=== PATIENT | male | born 2000 | race African-American/Black ===

== ENCOUNTER 2023-06-22 14:19 | Emergency (ER) | payer OTHER ==
[~2023-06-22] VITALS: Ht 182.9 cm; Wt 88.3 kg
[2023-06-22 14:20] VITALS: BP 147/80; TEMP 98.6; O2SAT 99
== END 2023-06-22 15:21 | disposition home or self-care (01) ==
LOC: M ED 14:19
DX: N48.89 Other specified disorders of penis (principal); R23.4 Changes in skin texture

== ENCOUNTER 2024-03-31 15:44 | Emergency (ER) | payer OTHER ==
[~2024-03-31] VITALS: Ht 182.9 cm; Wt 89.1 kg
[2024-03-31 15:45] VITALS: BP 134/75; TEMP 97.4; O2SAT 98
== END 2024-03-31 18:47 | disposition left against medical advice (07) ==
LOC: M ED 15:44
DX: Z53.21 Procedure and treatment not carried out due to patient leaving prior to being seen by health care provider (principal)

== ENCOUNTER 2024-07-29 20:07 | Emergency (ER) | payer OTHER ==
[~2024-07-29] VITALS: Ht 185.4 cm; Wt 91.8 kg
[2024-07-29 22:41] LABS: GC DNA AMPLIFICATION NEGATIVE (NEGATIVE)
[2024-07-29 23:09] LABS: Trichomonas vaginalis (AMP) NOT DETECTED (NEGATIVE)
[2024-07-30 04:50] VITALS: BP 142/80; TEMP 97.9; O2SAT 98
== END 2024-07-30 05:38 | disposition left against medical advice (07) ==
LOC: M ED 20:07
DX: Z53.21 Procedure and treatment not carried out due to patient leaving prior to being seen by health care provider (principal)

== ENCOUNTER → 2024-08-05 | Outpatient (REF) | payer OTHER ==
[2024-08-05 13:28] LABS: APPEARANCE, URINE MANUAL CLEAR (CLEAR); COLOR, URINE MANUAL YELLOW (YELLOW)
[2024-08-05 13:29] LABS: BILIRUBIN, URINE MANUAL NEGATIVE (NEGATIVE); BLOOD URINE MANUAL NEGATIVE (NEGATIVE); GLUCOSE, URINE (UA) MANUAL NEGATIVE (NEGATIVE); KETONE, URINE MANUAL NEGATIVE (NEGATIVE); LEUKOCYTE ESTERASE, URINE MAN NEGATIVE (NEGATIVE); NITRITE, URINE MANUAL NEGATIVE (NEGATIVE); PROTEIN, URINE MANUAL NEGATIVE (NEGATIVE); SPECIFIC GRAVITY,URINE MANUAL 1.025 (1.002-1.035); UROBILINOGEN, URINE MANUAL NORMAL (NORMAL)
== END ==
LOC: M SMT 13:03
PROVIDERS: ATTEND Nurse Practitioner Family
DX: N50.819 Testicular pain, unspecified (principal)